=== PATIENT | male | born 1985 | race Caucasian/White ===

== ENCOUNTER 2017-04-09 17:58 | Emergency (ER) | payer BC, MEDICAID ==
[2017-04-09 18:11] VITALS: BP 173/112
--- NOTE | 2017-04-09 18:29 | EDM.PDOC ---
ED HPI GENERAL MEDICAL PROBLEM - General Chief Complaint: Respiratory Problem Stated Complaint: SOB/CHEST PAIN Time Seen by Provider: 04/09/17 18:05 Source of Information: Reports: Patient - History of Present Illness INITIAL COMMENTS - FREE TEXT/NARRATIVE: Patient is here today for evaluation of a cough and sinus symptoms that started . Patient states that his cough has worsened, though his chest hurts when he coughs. He has had some productive sputum. He does have rhinorrhea and congestion. He denies any ear problems. Denies any chest pain other than when he coughs. No GI symptoms, eating well and drinking fluids well. Patient does have known untreated hepatitis C as he cannot afford the medication. 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 PCP in [place] prescribes his Suboxone as well. Patient also is on Coumadin daily for factor V and history of PE. Bilateral Chest Pain Score (Numeric/FACES): 6 - Related Data Allergies Allergy/AdvReac Type Severity Reaction Status Date / Time morphine Allergy Hives Verified 04/09/17 18:08 Home Meds: Home Meds Albuterol [Ventolin HFA] 1 - 2 puff INH Q4H PRN #1 inhaler 04/09/17 [Rx] Buprenorphine HCl/Naloxone HCl [Buprenorphin-Naloxon 8-2 mg Sl] 1 tab PO DAILY 04/09/17 [History] Warfarin Sodium [Jantoven] 7.5 mg PO DAILY 04/09/17 [History] Past Medical History HEENT History: Reports: Impaired Vision Other HEENT History: Wears glasses Cardiovascular History: Reports: Blood Clots/VTE/DVT Respiratory History: Reports: Bronchitis, Recurrent, PE, Pneumonia, Recurrent Gastrointestinal History: Reports: Other (See Below) Other Gastrointestinal History: bleeding ulcer Neurological History: Reports: Migraines - Infectious Disease History Infectious Disease History: Reports: Hepatitis C - Past Surgical History HEENT Surgical History: Reports: Myringotomy w Tube(s), Tonsillectomy Social & Family History - Tobacco Use Smoking Status *Q: Current Every Day Smoker Years of Tobacco use: 10 Packs/Tins Daily: 0.5 - Caffeine Use Caffeine Use: Reports: Energy Drinks, Soda, Tea - Recreational Drug Use Recreational Drug Use: Yes Drug Use in Last 12 Months: Yes Recreational Drug Type: Reports: Cocaine, Heroin, Opium Other Recreational Drug Type: last used 7 months ago Recreational Drug Use Frequency: Not Used In Over 6 Months ED ROS GENERAL - Review of Systems Review Of Systems: See Below Constitutional: Reports: Chills, Malaise, Weakness, Fatigue. Denies: Fever HEENT: Reports: Rhinitis, Sinus Problem. Denies: Ear Discharge, Ear Pain, Eye Discharge, Throat Pain Respiratory: Reports: Shortness of Breath, Pleuritic Chest Pain, Cough, Sputum. Denies: Wheezing, Hemoptysis Cardiovascular: Reports: No Symptoms GI/Abdominal: Reports: No Symptoms Skin: Reports: No Symptoms ED EXAM, GENERAL - Physical Exam Exam: See Below Exam Limited By: No Limitations General Appearance: Alert, WD/WN, No Apparent Distress, Other (Patient is morbidly obese.) Ears: Normal External Exam, Normal Canal, Normal TMs Nose: Normal Inspection, Nasal Drainage Throat/Mouth: Normal Inspection, Normal Oropharynx Head: Atraumatic, Normocephalic Neck: Normal Inspection. No: Lymphadenopathy (L), Lymphadenopathy (R) Respiratory/Chest: No Respiratory Distress, Lungs Clear, Normal Breath Sounds. No: Respiratory Distress Cardiovascular: Regular Rate, Rhythm, No Murmur, No Rub GI/Abdominal: Normal Bowel Sounds, Soft, Non-Tender Neurological: Alert, Oriented Skin Exam: Warm, Dry, Intact EKG INTERPRETATION EKG Date: 04/09/17 Time: 18:13 Rhythm: NSR Rate (Beats/Min): 91 [place]: Normal P-Wave: Present QRS: Normal ST-T: Normal QT: Normal EKG Interpretation Comments: Reviewed with Dr Li Course - Vital Signs Last Recorded V/S: Last Vital Signs Temp 99.1 F 04/09/17 18:08 Pulse 106 H 04/09/17 18:08 Resp 11 L 04/09/17 18:08 BP 173/112 H 04/09/17 18:08 Pulse Ox 98 04/09/17 20:14 - Orders/Labs/Meds Orders: Active Orders 24 hr Category Date Time Status EKG 12 Lead [EKG Documentation Completion] [RC] STAT Care 04/09/17 20:18 Active RT Aerosol Therapy [RC] ASDIRECTED Care 04/09/17 20:00 Active Chest 2V [CR] Stat Exams 04/09/17 18:34 Taken Labs: Laboratory Tests 04/09/17 04/09/17 04/09/17 Range/Units 18:15 18:55 18:55 WBC 5.92 (4.23-9.07) K/mm3 RBC 4.47 L (4.63-6.08) M/mm3 Hgb 12.5 L (13.7-17.5) gm/L Hct 38.5 L (40.1-51.0) % MCV 86.1 (79.0-92.2) fl MCH 28.0 (25.7-32.2) pg MCHC 32.5 (32.2-35.5) g/dl RDW Std Deviation 40.9 (35.1-43.9) fL Plt Count 201 (163-337) K/mm3 MPV 10.0 (9.4-12.3) fl Neutrophils % (Manual) 70 H (40-60) % Band Neutrophils % 0 (0-10) % Lymphocytes % (Manual) 21 (20-40) % Atypical Lymphs % 0 % Monocytes % (Manual) 5 (2-10) % Eosinophils % (Manual) 4 (0.8-7.0) % Basophils % (Manual) 0 L (0.2-1.2) Platelet Estimate Adequate RBC Morph Comment Normal PT 18.8 H (8.0-13.0) SECONDS INR 1.67 D-Dimer, Quantitative < 0.19 L (0.19-0.59) mg/L Sodium (136-145) mEq/L Potassium (3.5-5.1) mEq/L Chloride (98-107) mEq/L Carbon Dioxide (21-32) mEq/L Anion Gap (5-15) BUN (7-18) mg/dL Creatinine (0.7-1.3) mg/dL Est Cr Clr Drug Dosing mL/min Estimated GFR (MDRD) (>60) mL/min BUN/Creatinine Ratio (14-18) Glucose (74-106) mg/dL Calcium (8.5-10.1) mg/dL Total Bilirubin (0.2-1.0) mg/dL AST (15-37) U/L ALT (16-63) U/L Alkaline Phosphatase (46-116) U/L C-Reactive Protein (<1.0) mg/dL Total Protein (6.4-8.2) g/dl Albumin (3.4-5.0) g/dl Globulin gm/dL Albumin/Globulin Ratio (1-2) 04/09/17 Range/Units 18:55 WBC (4.23-9.07) K/mm3 RBC (4.63-6.08) M/mm3 Hgb (13.7-17.5) gm/L Hct (40.1-51.0) % MCV (79.0-92.2) fl MCH (25.7-32.2) pg MCHC (32.2-35.5) g/dl RDW Std Deviation (35.1-43.9) fL Plt Count (163-337) K/mm3 MPV (9.4-12.3) fl Neutrophils % (Manual) (40-60) % Band Neutrophils % (0-10) % Lymphocytes % (Manual) (20-40) % Atypical Lymphs % % Monocytes % (Manual) (2-10) % Eosinophils % (Manual) (0.8-7.0) % Basophils % (Manual) (0.2-1.2) Platelet Estimate RBC Morph Comment PT (8.0-13.0) SECONDS INR D-Dimer, Quantitative (0.19-0.59) mg/L Sodium 143 (136-145) mEq/L Potassium 3.7 (3.5-5.1) mEq/L Chloride 106 (98-107) mEq/L Carbon Dioxide 28 (21-32) mEq/L Anion Gap 12.7 (5-15) BUN 13 (7-18) mg/dL Creatinine 0.7 (0.7-1.3) mg/dL Est Cr Clr Drug Dosing 175.97 mL/min Estimated GFR (MDRD) > 60 (>60) mL/min BUN/Creatinine Ratio 18.6 H (14-18) Glucose 123 H (74-106) mg/dL Calcium 8.2 L (8.5-10.1) mg/dL Total Bilirubin 0.3 (0.2-1.0) mg/dL AST 21 (15-37) U/L ALT 42 (16-63) U/L Alkaline Phosphatase 66 (46-116) U/L C-Reactive Protein 2.4 H* (<1.0) mg/dL Total Protein 6.8 (6.4-8.2) g/dl Albumin 3.0 L (3.4-5.0) g/dl Globulin 3.8 gm/dL Albumin/Globulin Ratio 0.8 L (1-2) Meds: Medications Discontinued Medications Generic Name Dose Route Start Last Admin Trade Name Bradq PRN Reason Stop Dose Admin Albuterol/Ipratropium 3 ml 04/09/17 19:59 04/09/17 20:13 Duoneb 3.0-0.5 Mg/3 Ml NEB 04/09/17 20:00 3 ml ONETIME ONE Administration - Re-Assessments/Exams Free Text/Narrative Re-Assessment/Exam: No infiltrates or effusions visualized on xray, though image quality limited by patient's body habitus. Influenza negative. WBC 5920, CRP is 2.4. Likely viral etiology. Discussed supportive care measures; rest and increase fluids. Albuterol inhaler given for as needed use. Patient not therapeutic on his Coumadin, INR 1.67. Will increase his dose by 10 % which gives a total weekly dose is 65 mg. Patient is to follow-up with his PCP next week or certainly return to ER if needed and verbalized understanding of this. 04/09/17 19:25 04/09/17 20:42 Departure - Departure Time of Disposition: 20:37 Disposition: Home, Self-Care 01 Condition: Good Clinical Impression: Viral URI with cough, Bronchitis, Anticoagulated on warfarin - Discharge Information Prescriptions: Albuterol [Ventolin HFA] 1 - 2 puff INH Q4H PRN #1 inhaler PRN Reason: Dyspnea Instructions: Upper Respiratory Infection, Adult, [id number] Referrals: Kingston Reyna DO [Primary Care Provider] - Forms: ED Department Discharge Additional Instructions: Rest, drink lots of fluids Albuterol inhaler as needed ever 4-6 hours Follow-up with your PCP next week or return to ER if worsening of symptoms or fever >101F Your INR was low (1.68). Increase your coumadin to 2 pills (10mg) 4x weekly and 1.5 pills (7.5mg) 3 times weekly. Have this rechecked next week with your PCP. - My Orders Last 24 Hours: My Active Orders 04/09/17 18:34 Chest 2V [CR] Stat 04/09/17 20:00 RT Aerosol Therapy [RC] ASDIRECTED 04/09/17 20:18 EKG 12 Lead [EKG Documentation Completion] [RC] STAT - Assessment/Plan Last 24 Hours: My Active Orders 04/09/17 18:34 Chest 2V [CR] Stat 04/09/17 20:00 RT Aerosol Therapy [RC] ASDIRECTED 04/09/17 20:18 EKG 12 Lead [EKG Documentation Completion] [RC] STAT
[2017-04-09] MEDS ORDERED: Albuterol/Ipratropium 3.0-0.5 MG/3 ML Neb Soln NEB ONE (19:59)
--- NOTE | 2017-04-11 07:39 | CR ---
Chest: Two views of the chest were obtained. Comparison: No prior chest x-ray. Limitations: Motion artifact is identified on the frontal view. Within limitations as noted above, heart size and mediastinum are within normal limits. Lungs appear to be clear. Bony structures are within normal limits for the patient's age. Impression: 1. Motion artifact on the frontal view. Within this limitation, nothing acute is appreciated on two-view chest x-ray. Diagnostic code #2
== END 2017-04-09 20:55 | disposition home or self-care (01) ==
LOC: JD.ED 17:58
DX: J06.9 Acute upper respiratory infection, unspecified (principal); J40 Bronchitis, not specified as acute or chronic; F17.210 Nicotine dependence, cigarettes, uncomplicated; Z88.5 Allergy status to narcotic agent; Z79.01 Long term (current) use of anticoagulants
CPT/HCPCS: 36415; 71020; 71020-26; 80053; 85025; 85379; 85610; 86140; 87804; 93005; 93010; 94640; 99284-25; 99285-25

== ENCOUNTER 2017-07-14 12:33 | Emergency (ER) | payer BC ==
[2017-07-14 12:40] VITALS: BP 164/96
[2017-07-14] MEDS ORDERED: Sodium Chloride 0.9% 10 ML Syringe FLUSH PRN (12:57)
--- NOTE | 2017-07-14 13:04 | EDM.PDOC ---
ED HPI GENERAL MEDICAL PROBLEM - General Chief Complaint: Chest Pain Stated Complaint: [facility] Time Seen by Provider: 07/14/17 12:42 Source of Information: Reports: Patient History Limitations: Reports: No Limitations - History of Present Illness INITIAL COMMENTS - FREE TEXT/NARRATIVE: 31-year-old male presents for evaluation treatment of chest pain and shortness of breath. Patient reports the chest pain began around 30 this morning. He states he was at work at the time. He was sitting at his desk. Reports that chest pain has been intermittent. He "has a "little bit "of chest pain right now. Reports associated symptoms of shortness of breath. No fevers, cough, nausea or vomiting. Patient presented to his primary care provider's office today for refill on his Suboxone. He informed his primary care provider of his chest pain shortness of breath. Ambulance was called. Primary care called ear prior to arrival. Instructed he is not to have any narcotics as he is on Suboxone. Patient also reports he is on her bony for hepatitis C. Patient is currently on Coumadin, for history T blood clots 4. Reports his last INR was 2.9. States he is normally 2.1-2.4. Onset: Today Duration: Hour(s): (11) Location: Reports: Chest Left Chest Pain Score (Numeric/FACES): 5 - Related Data Allergies Allergy/AdvReac Type Severity Reaction Status Date / Time morphine Allergy Hives Verified 07/14/17 12:40 Home Meds: Home Meds Warfarin Sodium [Jantoven] 7.5 mg PO DAILY 04/09/17 [History] Buprenorphine HCl/Naloxone HCl [Suboxone 4 mg-1 mg Sl Film] 4 mg SL BEDTIME 01/21 [History] Buprenorphine HCl/Naloxone HCl [Suboxone 4 mg-1 mg Sl Film] 8 mg SL BID [History] Ledipasvir/Sofosbuvir [Harvoni 90-400 mg Tablet] 1 each PO DAILY 07/14/17 [ History] Multivitamin [Multivitamins] 1 each PO DAILY 07/14/17 [History] Acetaminophen 975 mg PO ONCALL PRN 07/21/17 [History] Penicillin V Potassium 500 mg PO Q6HR #40 tab 07/21/17 [Rx] Penicillin V Potassium 500 mg PO Q6HR #40 tab 07/21/17 [Rx] Past Medical History HEENT History: Reports: Impaired Vision Other HEENT History: Wears glasses Cardiovascular History: Reports: Blood Clots/VTE/DVT Respiratory History: Reports: Bronchitis, Recurrent, PE, Pneumonia, Recurrent Gastrointestinal History: Reports: Other (See Below) Other Gastrointestinal History: bleeding ulcer Neurological History: Reports: Migraines - Infectious Disease History Infectious Disease History: Reports: Hepatitis C - Past Surgical History HEENT Surgical History: Reports: Myringotomy w Tube(s), Tonsillectomy Social & Family History - Tobacco Use Smoking Status *Q: Current Every Day Smoker Years of Tobacco use: 12 Packs/Tins Daily: 0.5 - Caffeine Use Caffeine Use: Reports: Energy Drinks, Soda, Tea - Recreational Drug Use Recreational Drug Use: Yes Drug Use in Last 12 Months: No Recreational Drug Type: Reports: Cocaine, Heroin, Opium Other Recreational Drug Type: last used 7 months ago Recreational Drug Use Frequency: Not Used In Over 6 Months ED ROS GENERAL - Review of Systems Review Of Systems: See Below Constitutional: Denies: Fever Respiratory: Reports: Shortness of Breath. Denies: Cough Cardiovascular: Reports: Chest Pain GI/Abdominal: Denies: Abdominal Pain, Nausea, Vomiting ED EXAM, GENERAL - Physical Exam Exam: See Below Exam Limited By: No Limitations General Appearance: Alert, WD/WN, No Apparent Distress, Obese Throat/Mouth: Normal Inspection, Normal Lips, Normal Voice, No Airway Compromise Respiratory/Chest: No Respiratory Distress, Lungs Clear, Normal Breath Sounds Cardiovascular: Normal Peripheral Pulses, Regular Rate, Rhythm, No Murmur GI/Abdominal: Soft, Non-Tender Neurological: Alert, Oriented, Normal Cognition Psychiatric: Normal Affect, Normal Mood Skin Exam: Warm, Dry, Normal Color EKG INTERPRETATION EKG Date: 07/14/17 Time: 12:40 Rhythm: NSR Rate (Beats/Min): 78 [place]: Normal P-Wave: Present QRS: Normal ST-T: Normal QT: Normal EKG Interpretation Comments: NSR at 78 bpm. Poor "R" wave progression. consider septal hypertrophy. Reviewed by myself and Dr. Salmeron Course - Vital Signs Last Recorded V/S: Last Vital Signs Temp 36.1 C 07/14/17 12:37 Pulse 76 07/14/17 12:37 Resp 14 07/14/17 12:37 BP 164/96 H 07/14/17 12:37 Pulse Ox 98 07/14/17 12:37 - Orders/Labs/Meds Labs: Laboratory Tests 07/14/17 07/14/17 07/14/17 Range/Units 13:30 13:30 13:30 WBC 7.25 (4.23-9.07) K/mm3 RBC 4.58 L (4.63-6.08) M/mm3 Hgb 12.5 L (13.7-17.5) gm/L Hct 38.8 L (40.1-51.0) % MCV 84.7 (79.0-92.2) fl MCH 27.3 (25.7-32.2) pg MCHC 32.2 (32.2-35.5) g/dl RDW Std Deviation 43.4 (35.1-43.9) fL Plt Count 251 (163-337) K/mm3 MPV 10.4 (9.4-12.3) fl Neutrophils % (Manual) 66 H (40-60) % Band Neutrophils % 0 (0-10) % Lymphocytes % (Manual) 30 (20-40) % Atypical Lymphs % 0 % Monocytes % (Manual) 3 (2-10) % Eosinophils % (Manual) 0 L (0.8-7.0) % Basophils % (Manual) 1 (0.2-1.2) Platelet Estimate Adequate RBC Morph Comment Normal PT 28.6 H (8.0-13.0) SECONDS INR 2.48 APTT 46 H (22-36) SECONDS D-Dimer, Quantitative < 0.19 L (0.19-0.59) mg/L Puncture Site ABG pH (7.35-7.45) ABG pCO2 (35.0-45.0) mmHg ABG pO2 (80.0-100.0) mmHg ABG HCO3 (22.0-26.0) meq/L ABG O2 Saturation (96.0-97.0) % ABG Base Excess (-2-2.0) FiO2 (21.00-100.00) % Sodium 139 (136-145) mEq/L Potassium 4.1 (3.5-5.1) mEq/L Chloride 102 (98-107) mEq/L Carbon Dioxide 31 (21-32) mEq/L Anion Gap 10.1 (5-15) BUN 16 (7-18) mg/dL Creatinine 0.7 (0.7-1.3) mg/dL Est Cr Clr Drug Dosing 170.90 mL/min Estimated GFR (MDRD) > 60 (>60) mL/min BUN/Creatinine Ratio 22.9 H (14-18) Glucose 105 (74-106) mg/dL Calcium 8.8 (8.5-10.1) mg/dL Total Bilirubin 0.4 (0.2-1.0) mg/dL AST 23 (15-37) U/L ALT 38 (16-63) U/L Alkaline Phosphatase 59 (46-116) U/L Troponin I < 0.017 (0.00-0.056) ng/mL Total Protein 7.0 (6.4-8.2) g/dl Albumin 3.2 L (3.4-5.0) g/dl Globulin 3.8 gm/dL Albumin/Globulin Ratio 0.8 L (1-2) 07/14/17 Range/Units 15:00 WBC (4.23-9.07) K/mm3 RBC (4.63-6.08) M/mm3 Hgb (13.7-17.5) gm/L Hct (40.1-51.0) % MCV (79.0-92.2) fl MCH (25.7-32.2) pg MCHC (32.2-35.5) g/dl RDW Std Deviation (35.1-43.9) fL Plt Count (163-337) K/mm3 MPV (9.4-12.3) fl Neutrophils % (Manual) (40-60) % Band Neutrophils % (0-10) % Lymphocytes % (Manual) (20-40) % Atypical Lymphs % % Monocytes % (Manual) (2-10) % Eosinophils % (Manual) (0.8-7.0) % Basophils % (Manual) (0.2-1.2) Platelet Estimate RBC Morph Comment PT (8.0-13.0) SECONDS INR APTT (22-36) SECONDS D-Dimer, Quantitative (0.19-0.59) mg/L Puncture Site Rt radial ABG pH 7.39 (7.35-7.45) ABG pCO2 47.3 H (35.0-45.0) mmHg ABG pO2 78.0 L (80.0-100.0) mmHg ABG HCO3 28.0 H (22.0-26.0) meq/L ABG O2 Saturation 96.5 (96.0-97.0) % ABG Base Excess 2.9 H (-2-2.0) FiO2 0.00 L (21.00-100.00) % Sodium (136-145) mEq/L Potassium (3.5-5.1) mEq/L Chloride (98-107) mEq/L Carbon Dioxide (21-32) mEq/L Anion Gap (5-15) BUN (7-18) mg/dL Creatinine (0.7-1.3) mg/dL Est Cr Clr Drug Dosing mL/min Estimated GFR (MDRD) (>60) mL/min BUN/Creatinine Ratio (14-18) Glucose (74-106) mg/dL Calcium (8.5-10.1) mg/dL Total Bilirubin (0.2-1.0) mg/dL AST (15-37) U/L ALT (16-63) U/L Alkaline Phosphatase (46-116) U/L Troponin I (0.00-0.056) ng/mL Total Protein (6.4-8.2) g/dl Albumin (3.4-5.0) g/dl Globulin gm/dL Albumin/Globulin Ratio (1-2) Meds: Medications Discontinued Medications Generic Name Dose Route Start Last Admin Trade Name Freq PRN Reason Stop Dose Admin Sodium Chloride 10 ml 07/14/17 12:57 07/14/17 13:05 Saline Flush FLUSH 10 ml ASDIRECTED PRN Administration Keep Vein Open - Radiology Interpretation Free Text/Narrative:: chest xray shows no acute intrathoracic process - Re-Assessments/Exams Free Text/Narrative Re-Assessment/Exam: 07/14/17 15:18 I reviewed the labs and EKG with the patient. Will discharge him home. Discharge instructions as documented. Departure - Departure Time of Disposition: 15:18 Disposition: Home, Self-Care 01 Condition: Fair Clinical Impression: Anticoagulated on warfarin, Atypical chest pain Instructions: Warfarin Coagulopathy, Nonspecific Chest Pain, [id number] Referrals: Kingston Reyna, [Primary Care Provider] - Forms: ED Department Discharge Additional Instructions: Follow-up with your primary care provider this week or early next week. I recommend you discuss obtaining a stress test with him. Continue with your current plan of care. Please return to the ER if your symptoms change or worsen.
--- NOTE | 2017-07-14 14:06 | CR ---
Chest: Portable view of the chest was obtained. Comparison: Prior chest x-ray of 04/09/17. Heart is prominent in size but accentuated from portable technique. Lungs are clear. Bony structures are grossly intact. Impression: 1. Nothing acute is appreciated. Diagnostic code #1
== END 2017-07-14 15:31 | disposition home or self-care (01) ==
LOC: JD.ED 12:33
DX: R07.89 Other chest pain (principal); Z79.01 Long term (current) use of anticoagulants; F17.210 Nicotine dependence, cigarettes, uncomplicated; Z79.899 Other long term (current) drug therapy; Z88.5 Allergy status to narcotic agent
CPT/HCPCS: 36415; 36600; 71045; 80053; 82803; 84484; 85025; 85379; 85610; 85730; 93005; 99285; J7050; 93010; 99284

== ENCOUNTER 2017-07-21 02:59 | Emergency (ER) | payer BC ==
[2017-07-21 03:07] VITALS: BP 209/94
[2017-07-21] MEDS ORDERED: Amoxicillin 500 MG Cap PO ONE (03:15)
--- NOTE | 2017-07-21 03:20 | EDM.PDOC ---
ED HPI GENERAL MEDICAL PROBLEM - General Chief Complaint: ENT Problem Stated Complaint: INFECTED TOOTH Time Seen by Provider: 07/21/17 03:11 Source of Information: Reports: Patient History Limitations: Reports: No Limitations - History of Present Illness INITIAL COMMENTS - FREE TEXT/NARRATIVE: The patient presents with a dental infection. He started noticing some pain to his left upper gum line yesterday and the pain has gotten worse. He has bad teeth and he is saving money to be evaluated and treated. He has a fever. Onset: Gradual Duration: Day(s): (2) Location: Reports: Face (Left upper jaw dental pain) Quality: Reports: Sharp Severity: Moderate Improves with: Reports: None Worsens with: Reports: None Associated Symptoms: Reports: Fever/Chills. Denies: Cough, Headaches, Nausea/ Vomiting, Shortness of Breath Left Upper Tooth/Teeth Pain Score (Numeric/FACES): 5 - Related Data Allergies Allergy/AdvReac Type Severity Reaction Status Date / Time morphine Allergy Hives Verified 07/14/17 12:40 Home Meds: Home Meds Warfarin Sodium [Jantoven] 7.5 mg PO DAILY 04/09/17 [History] Buprenorphine HCl/Naloxone HCl [Suboxone 4 mg-1 mg Sl Film] 4 mg SL BEDTIME 01/21 [History] Buprenorphine HCl/Naloxone HCl [Suboxone 4 mg-1 mg Sl Film] 8 mg SL BID [History] Ledipasvir/Sofosbuvir [Harvoni 90-400 mg Tablet] 1 each PO DAILY 07/14/17 [ History] Multivitamin [Multivitamins] 1 each PO DAILY 07/14/17 [History] Acetaminophen 975 mg PO ONCALL PRN 07/21/17 [History] Penicillin V Potassium 500 mg PO Q6HR #40 tab 07/21/17 [Rx] Past Medical History HEENT History: Reports: Impaired Vision Other HEENT History: Wears glasses Cardiovascular History: Reports: Blood Clots/VTE/DVT Respiratory History: Reports: Bronchitis, Recurrent, PE, Pneumonia, Recurrent Gastrointestinal History: Reports: Other (See Below) Other Gastrointestinal History: bleeding ulcer Neurological History: Reports: Migraines Psychiatric History: Reports: Addiction - Infectious Disease History Infectious Disease History: Reports: Hepatitis C - Past Surgical History HEENT Surgical History: Reports: Myringotomy w Tube(s), Tonsillectomy Social & Family History - Tobacco Use Smoking Status *Q: Current Every Day Smoker Years of Tobacco use: 14 Packs/Tins Daily: 0.3 - Caffeine Use Caffeine Use: Reports: Energy Drinks, Soda, Tea - Recreational Drug Use Recreational Drug Use: Yes Drug Use in Last 12 Months: No Recreational Drug Type: Reports: Cocaine, Heroin, Opium Other Recreational Drug Type: last used 7 months ago Recreational Drug Use Frequency: Not Used In Over 6 Months ED ROS ENT - Review of Systems Review Of Systems: See Below Constitutional: Reports: No Symptoms HEENT: Reports: Dental Pain Respiratory: Reports: No Symptoms Cardiovascular: Reports: No Symptoms Endocrine: Reports: No Symptoms GI/Abdominal: Reports: No Symptoms : Reports: No Symptoms Musculoskeletal: Reports: No Symptoms ED EXAM, ENT - Physical Exam Exam: See Below Exam Limited By: No Limitations General Appearance: Alert, No Apparent Distress Ears: Normal External Exam Nose: Normal Inspection Mouth/Throat: Other (Cavities to teeth in the left upper jaw with erythema and edema of the gums) Head: Atraumatic, Normocephalic Neck: Normal Inspection Respiratory/Chest: No Respiratory Distress Course - Vital Signs Last Recorded V/S: Last Vital Signs Temp 100.3 F 07/21/17 03:05 Pulse 97 07/21/17 03:05 Resp 20 07/21/17 03:05 BP 209/94 H 07/21/17 03:05 Pulse Ox 100 07/21/17 03:05 - Orders/Labs/Meds Orders: Active Orders 24 hr Category Date Time Status Amoxicillin [Amoxil] Med 07/21/17 03:15 Once 1,000 mg PO ONETIME ONE - Re-Assessments/Exams Free Text/Narrative Re-Assessment/Exam: 07/21/17 03:18 I ordered some amoxicillin. I will get him a prescription for some pen VK. Departure - Departure Time of Disposition: 03:20 Disposition: Home, Self-Care 01 Condition: Good Clinical Impression: Dental caries, Dental abscess - Discharge Information Prescriptions: Penicillin V Potassium 500 mg PO Q6HR #40 tab Referrals: Kingston Reyna DO [Primary Care Provider] - Additional Instructions: Take the penicillin VK 4 times per day for 10 days. Follow up with a dentist when you can. Please return if you are worse. - My Orders Last 24 Hours: My Active Orders 07/21/17 03:15 Amoxicillin [Amoxil] 1,000 mg PO ONETIME ONE - Assessment/Plan Last 24 Hours: My Active Orders 07/21/17 03:15 Amoxicillin [Amoxil] 1,000 mg PO ONETIME ONE
== END 2017-07-21 03:30 | disposition home or self-care (01) ==
LOC: JD.ED 02:59
DX: K04.7 Periapical abscess without sinus (principal); K02.9 Dental caries, unspecified; F17.210 Nicotine dependence, cigarettes, uncomplicated; Z88.5 Allergy status to narcotic agent; Z79.899 Other long term (current) drug therapy; Z79.01 Long term (current) use of anticoagulants
CPT/HCPCS: 99283; A9270

== ENCOUNTER 2017-09-17 13:42 | Emergency (ER) | payer BC ==
[2017-09-17 13:53] VITALS: BP 156/98
[2017-09-17] MEDS ORDERED: ceFAZolin 2 GM in Premix Bag 1 BAG IV ONE (14:36)
[2017-09-17] MEDS ORDERED: Sodium Chloride 0.9% 10 ML Syringe FLUSH PRN (14:36)
[2017-09-17] MEDS ORDERED: Sodium Chloride 0.9% 1,000 ML IV SCH (14:45)
--- NOTE | 2017-09-17 14:45 | EDM.PDOC ---
ED HPI GENERAL MEDICAL PROBLEM - General Chief Complaint: Lower Extremity Injury/Pain Stated Complaint: RIGHT LEG PAIN Time Seen by Provider: 09/17/17 14:20 Source of Information: Reports: Patient History Limitations: Reports: No Limitations - History of Present Illness INITIAL COMMENTS - FREE TEXT/NARRATIVE: Patient is a 31-year-old male with a history of DVT and PE on warfarin who presents to the ED with concerns of cellulitis and/or blood clot to the right lower extremity. States about 3 weeks ago developed pain to the right leg with some mild erythema. States over the past 1.5 weeks the pain has worsened with increased redness and warmth noted. 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 He states last INR which was approximately one month ago was 2.3 which is therapeutic. He's had no fever, recent trauma, shortness of breath, or chest pain with onset of discomfort. No sensory/motor deficits noted. He offers no additional complaints at this time. Right Lower Leg Pain Score (Numeric/FACES): 5 - Related Data Allergies Allergy/AdvReac Type Severity Reaction Status Date / Time morphine Allergy Hives Verified 09/17/17 13:47 Home Meds: Home Meds Warfarin Sodium [Jantoven] 7.5 mg PO TUWETH 04/09/17 [History] Buprenorphine HCl/Naloxone HCl [Suboxone 4 mg-1 mg Sl Film] 4 mg SL BEDTIME 01/21 [History] Buprenorphine HCl/Naloxone HCl [Suboxone 4 mg-1 mg Sl Film] 8 mg SL BID [History] Multivitamin [Multivitamins] 1 each PO DAILY 07/14/17 [History] Acetaminophen 975 mg PO ONCALL PRN 07/21/17 [History] Cephalexin [Keflex] 500 mg PO QID #40 capsule 09/17/17 [Rx] Warfarin [Coumadin] 10 mg PO SUMOFRSA 09/17/17 [History] Past Medical History HEENT History: Reports: Impaired Vision Other HEENT History: Wears glasses Cardiovascular History: Reports: Blood Clots/VTE/DVT Respiratory History: Reports: Bronchitis, Recurrent, PE, Pneumonia, Recurrent Gastrointestinal History: Reports: Other (See Below) Other Gastrointestinal History: bleeding ulcer Neurological History: Reports: Migraines Psychiatric History: Reports: Addiction - Infectious Disease History Infectious Disease History: Reports: Hepatitis C - Past Surgical History HEENT Surgical History: Reports: Myringotomy w Tube(s), Tonsillectomy Social & Family History - Tobacco Use Smoking Status *Q: Current Every Day Smoker Years of Tobacco use: 15 Packs/Tins Daily: 0.2 - Caffeine Use Caffeine Use: Reports: Energy Drinks, Soda, Tea - Recreational Drug Use Recreational Drug Use: No Drug Use in Last 12 Months: No Recreational Drug Type: Reports: Cocaine, Heroin, Opium Other Recreational Drug Type: last used 7 months ago Recreational Drug Use Frequency: Not Used In Over 6 Months Review of Systems - Review of Systems Review Of Systems: ROS reveals no pertinent complaints other than HPI. ED EXAM, GENERAL - Physical Exam Exam: See Below Exam Limited By: No Limitations General Appearance: Alert, WD/WN, No Apparent Distress, Obese Ears: Hearing Grossly Normal Nose: Normal Inspection Throat/Mouth: Normal Voice, No Airway Compromise Neck: Normal Inspection, Supple Respiratory/Chest: No Respiratory Distress, Lungs Clear, Normal Breath Sounds, No Accessory Muscle Use, Chest Non-Tender Cardiovascular: Normal Peripheral Pulses, Regular Rate, Rhythm, No Murmur GI/Abdominal: Normal Bowel Sounds, Soft, Non-Tender, No Organomegaly, No Distention Extremities: Other (Patient is very obese. On examination of the right lower extremity there is a small scrape with a fairly large erythematous patch to the posterior calf with pain on palpation, increased warmth noted. No drainage. No sensory/motor deficits distally. There is a area of firmness noted to the posterior calf with tenderness noted. He states this is where the previous DVT was.) Neurological: Alert, Oriented, CN II-XII Intact, Normal Cognition, No Motor/ Sensory Deficits Psychiatric: Normal Affect, Normal Mood Skin Exam: Warm, Dry, Intact Course - Vital Signs Last Recorded V/S: Last Vital Signs Temp 98.4 F 09/17/17 13:47 Pulse 101 H 09/17/17 13:47 Resp 19 09/17/17 13:47 BP 156/98 H 09/17/17 13:47 Pulse Ox 98 09/17/17 13:47 - Orders/Labs/Meds Labs: Laboratory Tests 09/17/17 09/17/17 09/17/17 Range/Units 16:08 16:08 16:08 WBC 9.84 H (4.23-9.07) K/mm3 RBC 4.72 (4.63-6.08) M/mm3 Hgb 12.5 L (13.7-17.5) gm/L Hct 40.0 L (40.1-51.0) % MCV 84.7 (79.0-92.2) fl MCH 26.5 (25.7-32.2) pg MCHC 31.3 L (32.2-35.5) g/dl RDW Std Deviation 43.5 (35.1-43.9) fL Plt Count 279 (163-337) K/mm3 MPV 10.2 (9.4-12.3) fl Neutrophils % (Manual) 79 H (40-60) % Band Neutrophils % 0 (0-10) % Lymphocytes % (Manual) 11 L (20-40) % Atypical Lymphs % 0 % Monocytes % (Manual) 7 (2-10) % Eosinophils % (Manual) 2 (0.8-7.0) % Basophils % (Manual) 1 (0.2-1.2) Platelet Estimate Adequate Plt Morphology Comment Normal Hypochromasia 1+ slight RBC Morph Comment Not Reportable PT 44.9 H (9.5-12.1) SECONDS INR 4.24 APTT 54 H (24-31) SECONDS D-Dimer, Quantitative < 0.19 L (0.19-0.50) mg/L Sodium 143 (136-145) mEq/L Potassium 4.2 (3.5-5.1) mEq/L Chloride 105 (98-107) mEq/L Carbon Dioxide 29 (21-32) mEq/L Anion Gap 13.2 (5-15) BUN 13 (7-18) mg/dL Creatinine 0.7 (0.7-1.3) mg/dL Est Cr Clr Drug Dosing 170.90 mL/min Estimated GFR (MDRD) > 60 (>60) mL/min BUN/Creatinine Ratio 18.6 H (14-18) Glucose 101 (74-106) mg/dL Calcium 8.8 (8.5-10.1) mg/dL Total Bilirubin 0.3 (0.2-1.0) mg/dL AST 16 (15-37) U/L ALT 30 (16-63) U/L Alkaline Phosphatase 60 (46-116) U/L C-Reactive Protein 3.1 H* (<1.0) mg/dL Total Protein 7.7 (6.4-8.2) g/dl Albumin 3.3 L (3.4-5.0) g/dl Globulin 4.4 gm/dL Albumin/Globulin Ratio 0.8 L (1-2) Meds: Medications Discontinued Medications Generic Name Dose Route Start Last Admin Trade Name Freq PRN Reason Stop Dose Admin Cefazolin Sodium/Dextrose 2 gm 50 mls @ 100 mls/hr 09/17/17 14:36 09/17/17 15 :14 / Premix IV 09/17/17 15:05 100 mls/hr ONETIME ONE Administration Sodium Chloride 1,000 mls @ 125 mls/hr 09/17/17 14:45 09/17/17 15:15 Normal Saline IV 125 mls/hr ASDIRECTED GURPREET Administration Sodium Chloride 10 ml 09/17/17 14:36 09/17/17 15:14 Saline Flush FLUSH 10 ml ASDIRECTED PRN Administration Keep Vein Open - Re-Assessments/Exams Free Text/Narrative Re-Assessment/Exam: Peripheral IV started with Ancef 2 g IV. Patient has cellulitis of the right lower extremity with concerns for DVT. Initial labs and studies will include CBC, chem 14, CRP, d-dimer, PTT, and PTT/ INR. VL duplex of the right lower extremity obtained. There is a small scratch along the superior border of the area of increased erythema suggestive patient may have scratched it introducing bacteria. There is no drainage present. He has no history of MRSA. 09/17/17 16:39 Ultrasound right lower extremity impression: No evidence of deep venous thrombosis seen within the right lower extremity or the left common femoral vein. As mentioned above, the posterior tibial and peroneal veins were not visualized. Labs are pending. Labs reviewed: White blood cell count 9.84, hemoglobin 12.5, platelet count 279 , with no left shift. INR is supratherapeutic at 4.24. D-dimer less than 0.19. Chemistry panel is essentially normal. CRP mildly elevated at 3.1. Patient does not have a blood clot. INR supratherapeutic. Patient does have cellulitis. Will discharge patient home on Keflex. Discharge instructions as documented. Departure - Departure Time of Disposition: 16:48 Disposition: Home, Self-Care 01 Condition: Good Clinical Impression: Supratherapeutic INR Cellulitis Qualifiers: Site of cellulitis: extremity Site of cellulitis of extremity: lower extremity Laterality: right Qualified Code(s): L03.115 - Cellulitis of right lower limb - Discharge Information Prescriptions: Cephalexin [Keflex] 500 mg PO QID #40 capsule Instructions: Cellulitis, Adult Referrals: PCP,Not In Area [Primary Care Provider] - Forms: ED Department Discharge Additional Instructions: INR was supratherapeutic. Will have you hold her dose tomorrow and decreased the total warfarin dosage for one week by 10%. Thus will have you take 7.5 mg on Tuesday, Tuesday, Tuesday, , and Tuesday. Take 10 mg on Tuesday and Tuesday. In addition will have you take Keflex 4 times a day for 10 days. Elevate the affected extremity unable to reduce any swelling and pain. Apply warm compresses to affected area 4 times daily, 30 minutes in duration. Do not scratch her leg since this most likely precipitated the infection. Follow-up with your primary care provider the middle part of next week to recheck her INR and also evaluated for improvements to cellulitis area. Continue taking all your other home medications as prescribed. Return to the ED if you develop any new or worsening symptoms.
--- NOTE | 2017-09-17 16:11 | US ---
Right lower extremity deep venous ultrasound: Duplex and color flow imaging was obtained of the right common femoral, superficial femoral, popliteal, posterior tibial, peroneal and proximal greater saphenous vein. Left common femoral vein was also evaluated. Technologist's note: Difficult exam due to patient body habitus, unable to definitely visualize posterior tibial and peroneal veins. Findings: As noted above, the posterior tibial and peroneal veins were not able to be visualized. Other veins show normal phasic flow, augmentation and compression. Impression: 1. No evidence of deep venous thrombosis seen within right lower extremity or the left common femoral vein. 2. As mentioned above, the posterior tibial and peroneal veins were not visualized. Diagnostic code #2
== END 2017-09-17 17:20 | disposition home or self-care (01) ==
LOC: JD.ED 13:42
DX: L03.115 Cellulitis of right lower limb (principal); R79.1 Abnormal coagulation profile; Z86.718 Personal history of other venous thrombosis and embolism; Z79.01 Long term (current) use of anticoagulants; Z88.5 Allergy status to narcotic agent
CPT/HCPCS: 36415; 80053; 85025; 85379; 85610; 85730; 86140; 93971; 96361; 96365; 99284; J0690; J7040; J7050

== ENCOUNTER 2017-10-12 00:50 | Emergency (ER) | payer BC ==
[2017-10-12 01:08] VITALS: BP 184/115
[2017-10-12] MEDS ORDERED: Ondansetron 4 MG/2 ML SDV IVPUSH ONE (01:31)
--- NOTE | 2017-10-12 01:35 | EDM.PDOC ---
ED HPI GENERAL MEDICAL PROBLEM - General Chief Complaint: Abdominal Pain Stated Complaint: ABDOMINAL PAIN Time Seen by Provider: 10/12/17 01:18 Source of Information: Reports: Patient History Limitations: Reports: No Limitations - History of Present Illness INITIAL COMMENTS - FREE TEXT/NARRATIVE: The patient states that he developed lower abdominal pain, a crampy sensation, Tuesday night, 10/07/2017, or Tuesday morning, 10/08/2017. He states that he felt well on Tuesday and Tuesday, 10/09/2017 and 10/10/2017, but that his symptoms returned again today. He has not identified any modifiers. The pain does not radiate. He has had nausea, but no emesis. No recent constipation or diarrhea. No recent urinary symptoms. No recent fever. No prior similar symptoms. The patient states that he has not tried any home remedies or [id number] medications to treat his symptoms. The patient's last oral solid food was at 22:30 tonight. The patient's PCP is Dr. Reyna. Lower Abdominal Pain Score (Numeric/FACES): 7 - Related Data Allergies Allergy/AdvReac Type Severity Reaction Status Date / Time morphine Allergy Hives Verified 10/12/17 01:08 Home Meds: Home Meds Warfarin Sodium [Jantoven] 7.5 mg PO WETH 04/09/17 [History] Buprenorphine HCl/Naloxone HCl [Suboxone 4 mg-1 mg Sl Film] 4 mg SL BEDTIME 01/21 [History] Buprenorphine HCl/Naloxone HCl [Suboxone 4 mg-1 mg Sl Film] 8 mg SL BID [History] Multivitamin [Multivitamins] 1 each PO DAILY 07/14/17 [History] Acetaminophen 975 mg PO ONCALL PRN 07/21/17 [History] Warfarin [Coumadin] 10 mg PO SUMOFRSA 09/17/17 [History] Ondansetron [Zofran ODT] 1 tab PO Q8H PRN #10 tab.dis 10/12/17 [Rx] Past Medical History HEENT History: Reports: Impaired Vision Other HEENT History: Wears glasses Cardiovascular History: Reports: Blood Clots/VTE/DVT, Other (See Below) Respiratory History: Reports: PE Gastrointestinal History: Reports: PUD Musculoskeletal History: Reports: Fracture (right elbow, rib, hand) Neurological History: Reports: Migraines Psychiatric History: Reports: Addiction (Cocaine, heroin, opioids, marijuana, alcohol) Endocrine/Metabolic History: Reports: Obesity/BMI 30+ Hematologic History: Reports: Anticoagulation Therapy (Factor V Leiden) - Infectious Disease History Infectious Disease History: Reports: Hepatitis C - Past Surgical History HEENT Surgical History: Reports: Myringotomy w Tube(s), Tonsillectomy Social & Family History - Family History Cardiac: Reports: [place] - Tobacco Use Smoking Status *Q: Current Every Day Smoker Years of Tobacco use: 16 Packs/Tins Daily: 2 - Caffeine Use Caffeine Use: Reports: Tea - Alcohol Use Alcohol Use History: Yes Date/Time of Last Drink Comment: Quit 2011 - Recreational Drug Use Recreational Drug Use: Yes Drug Use in Last 12 Months: No Recreational Drug Type: Reports: Cocaine (last December 2015), Heroin (last 2015), Marijuana/Hashish (last 2009), Other (see below) (Opioids - last Feb 2016) - Living Situation & Occupation Living situation: Reports: Single, Other (with a friend) Occupation: Employed ([employer]) ED ROS GENERAL - Review of Systems Review Of Systems: ROS reveals no pertinent complaints other than HPI. ED EXAM, GI/ABD - Physical Exam Exam: See Below Exam Limited By: No Limitations General Appearance: Alert, WD/WN, No Apparent Distress Eyes: Bilateral: Normal Appearance, EOMI Ears: Normal External Exam, Hearing Grossly Normal Nose: Normal Inspection, No Blood Throat/Mouth: Normal Inspection, Normal Lips, Normal Voice, No Airway Compromise Head: Atraumatic, Normocephalic Neck: Normal Inspection, Full Range of Motion Respiratory/Chest: No Respiratory Distress, Lungs Clear, Normal Breath Sounds, No Accessory Muscle Use Cardiovascular: Normal Peripheral Pulses, Regular Rate, Rhythm, No Gallop, No JVD, No Murmur, No Rub GI/Abdominal Exam: Normal Bowel Sounds, Soft, Non-Tender (Including to lower abdomen), No Organomegaly, No Distention, No Abnormal Bruit, No Mass, Other ( Obese) (Male) Exam: Deferred Rectal (Males) Exam: Deferred Back Exam: Normal Inspection, Full Range of Motion. No: CVA Tenderness (L), CVA Tenderness (R) Extremities: Normal Inspection, Normal Range of Motion, No Pedal Edema, Normal Capillary Refill Neurological: Alert, Oriented, Normal Cognition, No Motor/Sensory Deficits Psychiatric: Normal Affect Skin Exam: Warm, Dry, Intact, Normal Color, No Rash Course - Vital Signs Last Recorded V/S: Last Vital Signs Temp 37.1 C 10/12/17 01:05 Pulse 92 10/12/17 01:05 Resp 18 10/12/17 01:05 BP 184/115 H 10/12/17 01:05 Pulse Ox 94 L 10/12/17 01:05 - Orders/Labs/Meds Orders: Active Orders 24 hr Category Date Time Status Abdomen Pelvis w Cont [CT] Stat Exams 10/12/17 01:31 Taken UA W/MICROSCOPIC [URIN] Stat Lab 10/12/17 03:24 Ordered Labs: Laboratory Tests 10/12/17 10/12/17 10/12/17 Range/Units 01:56 01:56 03:24 WBC 8.59 (4.23-9.07) K/mm3 RBC 5.06 (4.63-6.08) M/mm3 Hgb 13.4 L (13.7-17.5) gm/L Hct 42.2 (40.1-51.0) % MCV 83.4 (79.0-92.2) fl MCH 26.5 (25.7-32.2) pg MCHC 31.8 L (32.2-35.5) g/dl RDW Std Deviation 43.8 (35.1-43.9) fL Plt Count 264 (163-337) K/mm3 MPV 10.8 (9.4-12.3) fl Neutrophils % (Manual) 69 H (40-60) % Band Neutrophils % 0 (0-10) % Lymphocytes % (Manual) 24 (20-40) % Atypical Lymphs % 0 % Monocytes % (Manual) 2 (2-10) % Eosinophils % (Manual) 5 (0.8-7.0) % Basophils % (Manual) 0 L (0.2-1.2) Platelet Estimate Adequate RBC Morph Comment Normal Sodium 141 (136-145) mEq/L Potassium 3.6 (3.5-5.1) mEq/L Chloride 105 (98-107) mEq/L Carbon Dioxide 28 (21-32) mEq/L Anion Gap 11.6 (5-15) BUN 14 (7-18) mg/dL Creatinine 0.7 (0.7-1.3) mg/dL Est Cr Clr Drug Dosing 170.90 mL/min Estimated GFR (MDRD) > 60 (>60) mL/min BUN/Creatinine Ratio 20.0 H (14-18) Glucose 108 H (74-106) mg/dL Calcium 8.9 (8.5-10.1) mg/dL Total Bilirubin 0.7 (0.2-1.0) mg/dL AST 18 (15-37) U/L ALT 38 (16-63) U/L Alkaline Phosphatase 51 (46-116) U/L Total Protein 7.8 (6.4-8.2) g/dl Albumin 3.6 (3.4-5.0) g/dl Globulin 4.2 gm/dL Albumin/Globulin Ratio 0.9 L (1-2) Lipase 65 L (73-393) U/L Urine Color Yellow (Yellow) Urine Appearance Clear (Clear) Urine pH 6.0 (5.0-8.0) Ur Specific [place] 1.020 (1.005-1.030) Urine Protein Negative (Negative) Urine Glucose (UA) Negative (Negative) Urine Ketones 1+ H (Negative) Urine Occult Blood Negative (Negative) Urine Nitrite Negative (Negative) Urine Bilirubin 1+ H (Negative) Urine Urobilinogen 1.0 (0.2-1.0) Ur Leukocyte Esterase Negative (Negative) Urine RBC Not seen (0-5) /hpf Urine WBC Not seen (0-5) /hpf Ur Epithelial Cells Not seen (0-5) /hpf Urine Bacteria Occasional (FEW) /hpf Urine Mucus Few (FEW) /hpf Meds: Medications Discontinued Medications Generic Name Dose Route Start Last Admin Trade Name Freq PRN Reason Stop Dose Admin Diatrizoate Meglum/Diatrizoate Sod 90 ml 10/12/17 03:10 10/12/17 03:12 Gastrografin 37% PO 10/12/17 03:11 90 ml ONETIME ONE Administration Sodium Chloride 1,000 mls @ 150 mls/hr 10/12/17 01:45 10/12/17 02:00 Normal Saline IV 150 mls/hr ASDIRECTED GURPREET Administration Iopamidol 125 ml 10/12/17 03:10 10/12/17 03:12 Isovue-300 (61%) IVPUSH 10/12/17 03:11 125 ml ONETIME ONE Administration Ondansetron HCl 4 mg 10/12/17 01:31 10/12/17 02:00 Zofran IVPUSH 10/12/17 01:32 4 mg ONETIME ONE Administration - Re-Assessments/Exams Free Text/Narrative Re-Assessment/Exam: 10/12/17 01:34 The patient's abdominal exam is concerning in that there are rare bowel sounds, although he has minimal tenderness to his lower abdomen, where his pain is felt. In addition to blood work and a urinalysis, I have ordered a CT scan of the abdomen and pelvis with oral and IV contrast. I have ordered IV fluid and Zofran, but, given the patient's history of opioid abuse, in recovery, no pain medication at this time. 10/12/17 04:03 CT of the abdomen and pelvis with oral and IV contrast is read by [facility] as: Focal arthritis [sic] in the right lower quadrant involving the terminal ileum without evidence for abscess or bowel obstruction. Crohn's disease should be considered Normal appendix right lower quadrant 10/12/17 04:56 Test results discussed with the patient. As above, the CT scan indicates that the patient has inflammation at the terminal ileum, concerning for Crohn disease , but not diagnostic. Other potential causes of this could be viral. Treatment is based on diagnosis. For today's purposes, I will discharge the patient home with an e-prescription for Zofran, and refer the patient to Dr. Tay, to arrange for an outpatient colonoscopy. Departure - Departure Time of Disposition: 04:57 Disposition: Home, Self-Care 01 Condition: Fair Clinical Impression: Inflammation of small intestine - Discharge Information Prescriptions: Ondansetron [Zofran ODT] 1 tab PO Q8H PRN #10 tab.dis PRN Reason: Nausea/Vomiting Referrals: PCP,Not In Area [Primary Care Provider] - Luke Tay MD [Physician] - Forms: ED Department Discharge Additional Instructions: You were seen in the emergency room for lower abdominal pain and nausea. Workup in the ER included blood work, a urinalysis, and a CT scan of your abdomen and pelvis. Your blood work and urinalysis were normal, however, the CT scan of your abdomen and pelvis found inflammation involving the terminal ileum - the last part of your small intestine. There is a possibility that this could be due to Crohn disease. Further evaluation is needed. A prescription for the anti-nausea medicine Zofran has been sent to the [facility] pharmacy, located on [facility]. Dissolve 1 tablet on your tongue up to every 8 hours, as needed for nausea/vomiting. Follow-up with the Surgeon Dr. Tay at the next available appointment, to arrange for an outpatient colonoscopy. If any other problems, please do not hesitate to return to the ER. - My Orders Last 24 Hours: My Active Orders 10/12/17 01:31 Abdomen Pelvis w Cont [CT] Stat 10/12/17 03:24 UA W/MICROSCOPIC [URIN] Stat - Assessment/Plan Last 24 Hours: My Active Orders 10/12/17 01:31 Abdomen Pelvis w Cont [CT] Stat 10/12/17 03:24 UA W/MICROSCOPIC [URIN] Stat
[2017-10-12] MEDS ORDERED: Sodium Chloride 0.9% 1,000 ML IV SCH (01:45)
[2017-10-12] MEDS ORDERED: Diatrizoate Meglumine/Diatrizoate Sodium 37% 120 ML Bottle PO ONE (03:10)
[2017-10-12] MEDS ORDERED: Iopamidol 612 MG/ML 150 ML Bottle IVPUSH ONE (03:10)
--- NOTE | 2017-10-13 10:21 | CT ---
CT abdomen and pelvis Technique: Multiple axial sections were obtained from above the dome of the diaphragm inferiorly through the pubic symphysis. Intravenous and oral contrast was utilized. Delayed images were also obtained through the pelvis. Comparison: No prior abdominal imaging. Findings: Visualized lung bases show nothing acute. Liver and spleen show no focal parenchymal abnormality. Adrenal glands show no nodule. Pancreas is normal. Gallbladder is collapsed but shows no calcified gallstones. Kidneys show symmetric contrast enhancement without hydronephrosis or mass. Aorta shows no aneurysmal dilatation. No retroperitoneal adenopathy is seen. No pelvic mass or adenopathy is seen. Delayed images show contrast throughout the ureters and bladder. Lack of contrast is seen within the distal ileal loops but bowel wall thickening is felt to be present within the distal ileal loops. More proximal small bowel shows no abnormality. Appendix is felt to be visualized and appears within normal limits. Bone window settings were reviewed which appear within normal limits for the patient's age. Impression: 1. Mild wall thickening suggested within the distal ileum compatible with enteritis. Given the location of this small bowel wall thickening, Crohn's disease needs to be strongly considered. 2. Nothing acute is otherwise seen on CT study of the abdomen and pelvis. Diagnostic code #3 I agree with preliminary report from [facility], finalized at 10/12/17, 4:31 AM Central Time
== END 2017-10-12 05:15 | disposition home or self-care (01) ==
LOC: JD.ED 00:50
DX: K52.9 Noninfective gastroenteritis and colitis, unspecified (principal); F17.210 Nicotine dependence, cigarettes, uncomplicated; Z79.01 Long term (current) use of anticoagulants; Z79.899 Other long term (current) drug therapy; Z88.5 Allergy status to narcotic agent
CPT/HCPCS: 36415; 74177; 80053; 81001; 83690; 85025; 96361; 96374; 99284; J2405; J7040; Q9963; Q9967

== ENCOUNTER 2017-11-13 18:35 | Emergency (ER) | payer BC ==
[2017-11-13 18:50] VITALS: BP 146/66
[2017-11-13] MEDS ORDERED: Ketorolac 60 MG/2 ML SDV IM ONE (19:05)
[2017-11-13] MEDS ORDERED: Amoxicillin 500 MG Cap PO ONE (19:05)
[2017-11-13] MEDS ORDERED: Acetaminophen 325 MG Tab PO ONE (19:05)
--- NOTE | 2017-11-13 19:11 | EDM.PDOC ---
ED HPI GENERAL MEDICAL PROBLEM - General Chief Complaint: ENT Problem Stated Complaint: tooth pain Time Seen by Provider: 11/13/17 18:48 Source of Information: Reports: Patient, RN Notes Reviewed - History of Present Illness INITIAL COMMENTS - FREE TEXT/NARRATIVE: 32 year old male with dental pain R 2nd lower premolar. tooth has been bad for awhile, started hurting badly past 2 days, worse today. Treatments HAND INSPECTOR: Reports: Other (see below) Other Treatments HAND INSPECTOR: motrin Right Lower Tooth/Teeth Pain Score (Numeric/FACES): 8 - Related Data Allergies Allergy/AdvReac Type Severity Reaction Status Date / Time morphine Allergy Hives Verified 10/12/17 01:08 Home Meds: Home Meds Warfarin Sodium [Jantoven] 7.5 mg PO TUWETH 04/09/17 [History] Buprenorphine HCl/Naloxone HCl [Suboxone 4 mg-1 mg Sl Film] 4 mg SL BEDTIME 01/21 [History] Buprenorphine HCl/Naloxone HCl [Suboxone 4 mg-1 mg Sl Film] 8 mg SL BID [History] Multivitamin [Multivitamins] 1 each PO DAILY 07/14/17 [History] Acetaminophen 975 mg PO ONCALL PRN 07/21/17 [History] Warfarin [Coumadin] 10 mg PO SUMOFRSA 09/17/17 [History] Naproxen [Naprosyn] 500 mg PO Q12HR #14 tab 11/13/17 [Rx] Past Medical History HEENT History: Reports: Impaired Vision Other HEENT History: Wears glasses Cardiovascular History: Reports: Blood Clots/VTE/DVT, Other (See Below) Other Cardiovascular History: factor V, PE Respiratory History: Reports: PE Gastrointestinal History: Reports: PUD Other Gastrointestinal History: bleeding ulcer Musculoskeletal History: Reports: Fracture Other Musculoskeletal History: right elbow fracture, rib fracture, hand fracture Neurological History: Reports: Migraines Psychiatric History: Reports: Addiction Endocrine/Metabolic History: Reports: Obesity/BMI 30+ Hematologic History: Reports: Anticoagulation Therapy Other Hematologic History: Factor V - Infectious Disease History Infectious Disease History: Reports: Hepatitis C - Past Surgical History HEENT Surgical History: Reports: Myringotomy w Tube(s), Tonsillectomy Social & Family History - Family History Cardiac: Reports: [place] - Tobacco Use Smoking Status *Q: Current Every Day Smoker Years of Tobacco use: 16 Packs/Tins Daily: 0.5 - Caffeine Use Caffeine Use: Reports: Energy Drinks, Tea - Recreational Drug Use Recreational Drug Use: No - Living Situation & Occupation Living situation: Reports: Single, Other (with a friend) Occupation: Employed ([employer]) ED ROS ENT - Review of Systems Review Of Systems: See Below Constitutional: Denies: Fever, Chills HEENT: Reports: Dental Pain Respiratory: Reports: No Symptoms Cardiovascular: Denies: Chest Pain GI/Abdominal: Denies: Nausea, Vomiting Skin: Reports: No Symptoms Neurological: Reports: No Symptoms ED EXAM, ENT - Physical Exam Exam: See Below General Appearance: Alert, Mild Distress Mouth/Throat: Dental Pain (R lower 2nd premolar, no swelling or drainage) Head: No: Facial Swelling Neck: Supple Respiratory/Chest: No Respiratory Distress Skin: Warm, Dry, Normal Color Course - Vital Signs Last Recorded V/S: Last Vital Signs Temp 98.3 F 11/13/17 18:49 Pulse 94 11/13/17 18:49 Resp 20 11/13/17 18:49 BP 146/66 H 11/13/17 18:49 Pulse Ox 97 11/13/17 18:49 - Orders/Labs/Meds Meds: Medications Discontinued Medications Generic Name Dose Route Start Last Admin Trade Name Guillermo PRN Reason Stop Dose Admin Acetaminophen 975 mg 11/13/17 19:05 11/13/17 19:20 Tylenol PO 11/13/17 19:06 975 mg NOW ONE Administration Amoxicillin 1,000 mg 11/13/17 19:05 11/13/17 19:19 Amoxil PO 11/13/17 19:06 1,000 mg ONETIME ONE Administration Ketorolac Tromethamine 60 mg 11/13/17 19:05 11/13/17 19:21 Toradol IM 11/13/17 19:06 60 mg ONETIME ONE Administration Departure - Departure Time of Disposition: 19:07 Disposition: Home, Self-Care 01 Condition: Fair Clinical Impression: Pain, dental - Discharge Information Prescriptions: Naproxen [Naprosyn] 500 mg PO Q12HR #14 tab Referrals: Kingston Reyna DO [Primary Care Provider] - Forms: ED Department Discharge Additional Instructions: amoxacillin 1000 mg twice daily for 1 week, tylenol 2 to 3 times daily, naprosyn 500 mg twice daily until discomfort resolving, see dentist as soon as possible
== END 2017-11-13 19:30 | disposition home or self-care (01) ==
LOC: SUPCPDRO 18:35 → JD.ED 18:35
DX: K08.89 Other specified disorders of teeth and supporting structures (principal); F17.210 Nicotine dependence, cigarettes, uncomplicated; Z88.5 Allergy status to narcotic agent; Z79.01 Long term (current) use of anticoagulants; Z79.899 Other long term (current) drug therapy
CPT/HCPCS: 96372; 99283; A9270; J1885

== ENCOUNTER 2017-12-01 13:16 | Emergency (ER) | payer BC ==
[2017-12-01 13:26] VITALS: BP 172/97
[2017-12-01] MEDS ORDERED: Ketorolac 60 MG/2 ML SDV IM ONE (13:49)
--- NOTE | 2017-12-01 13:57 | EDM.PDOC ---
ED HPI GENERAL MEDICAL PROBLEM - General Chief Complaint: ENT Problem Stated Complaint: TOOTH PAIN Time Seen by Provider: 12/01/17 13:52 Source of Information: Reports: Patient History Limitations: Reports: No Limitations - History of Present Illness INITIAL COMMENTS - FREE TEXT/NARRATIVE: 32-year-old male presents to the ED with dental pain right lower molar tooth. States is the same tooth that was bothering him over 3 weeks ago when he was here. He was here I believe November [address] Roberts with pain in his right lower molar tooth. The tooth itself on inspection does not look to be in that bad of shape. He must have a root abscess. He states he did get better with antibiotic therapy but within a few days of stopping antibiotics pain is come back. He is a very little limited financial means and cannot afford to see a dentist. Onset: Gradual Onset Date: 11/28/17 Duration: Day(s): Location: Reports: Face (Right lower dental pain) Quality: Reports: Ache, Throbbing Severity: Moderate Improves with: Reports: None Worsens with: Reports: Eating Context: Denies: Activity, Exercise, Lifting, Sick Contact, Trauma, Other Associated Symptoms: Reports: No Other Symptoms Treatments JOB SITE SUPERINTENDENT: Reports: Acetaminophen Right Lower Tooth/Teeth Pain Score (Numeric/FACES): 8 - Related Data Allergies Allergy/AdvReac Type Severity Reaction Status Date / Time morphine Allergy Hives Verified 12/01/17 13:26 Home Meds: Home Meds Warfarin Sodium [Jantoven] 7.5 mg PO WE04/09/17 [History] Buprenorphine HCl/Naloxone HCl [Suboxone 4 mg-1 mg Sl Film] 4 mg SL BEDTIME 01/21 [History] Buprenorphine HCl/Naloxone HCl [Suboxone 4 mg-1 mg Sl Film] 8 mg SL BID [History] Multivitamin [Multivitamins] 1 each PO DAILY 07/14/17 [History] Acetaminophen 975 mg PO QID PRN 07/21/17 [History] Warfarin [Coumadin] 10 mg PO SUMOFRSA 09/17/17 [History] Cephalexin 500 mg PO TID #42 capsule 12/01/17 [Rx] Past Medical History HEENT History: Reports: Impaired Vision Other HEENT History: Wears glasses Cardiovascular History: Reports: Blood Clots/VTE/DVT, Other (See Below) Other Cardiovascular History: factor V, PE Respiratory History: Reports: PE Gastrointestinal History: Reports: PUD Other Gastrointestinal History: bleeding ulcer Musculoskeletal History: Reports: Fracture Other Musculoskeletal History: right elbow fracture, rib fracture, hand fracture Neurological History: Reports: Migraines Psychiatric History: Reports: Addiction Endocrine/Metabolic History: Reports: Obesity/BMI 30+ Hematologic History: Reports: Anticoagulation Therapy Other Hematologic History: Factor V - Infectious Disease History Infectious Disease History: Reports: Hepatitis C - Past Surgical History HEENT Surgical History: Reports: Myringotomy w Tube(s), Tonsillectomy Social & Family History - Family History Cardiac: Reports: [place] - Tobacco Use Smoking Status *Q: Current Every Day Smoker Years of Tobacco use: 15 Packs/Tins Daily: 0.2 - Caffeine Use Caffeine Use: Reports: Energy Drinks, Tea - Recreational Drug Use Recreational Drug Use: Yes Drug Use in Last 12 Months: No Recreational Drug Type: Reports: Methamphetamine - Living Situation & Occupation Living situation: Reports: Single, Other (with a friend) Occupation: Employed ([employer]) ED ROS ENT - Review of Systems Review Of Systems: See Below Constitutional: Denies: Fever, Chills, Malaise, Weakness, Decreased Appetite HEENT: Reports: Dental Pain Respiratory: Reports: No Symptoms (Right lower molar tooth.) Cardiovascular: Reports: No Symptoms Endocrine: Reports: No Symptoms GI/Abdominal: Reports: No Symptoms : Reports: No Symptoms Musculoskeletal: Reports: No Symptoms Skin: Reports: No Symptoms Neurological: Reports: No Symptoms Hematologic/Lymphatic: Reports: Easy Bleeding, Easy Bruising (Due to being on Coumadin.), Other (Patient has a von Leiden factor mutation. 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 He is therefore on Coumadin chronically.) ED EXAM, ENT - Physical Exam Exam: See Below Exam Limited By: No Limitations General Appearance: Alert, WD/WN, No Apparent Distress Eye Exam: Bilateral Eye: Normal Inspection Ears: Normal TMs Mouth/Throat: Dental Tenderness (Patient's pain is localized to his first right lower molar tooth. The tooth itself does not appear to be in bad shape. There is no obvious gingiva swelling or abscess. He did have marked pain on palpation of the tooth however with tongue blade. Suggest a root abscess.) Head: Atraumatic, Normocephalic Neck: Normal Inspection, Supple, Non-Tender, Full Range of Motion. No: Lymphadenopathy (L), Lymphadenopathy (R) Course - Vital Signs Last Recorded V/S: Last Vital Signs Temp 36.7 C 12/01/17 13:23 Pulse 63 12/01/17 13:23 Resp 20 12/01/17 13:23 BP 172/97 H 12/01/17 13:23 Pulse Ox 98 12/01/17 13:23 - Orders/Labs/Meds Meds: Medications Discontinued Medications Generic Name Dose Route Start Last Admin Trade Name Guillermo PRN Reason Stop Dose Admin Ketorolac Tromethamine 60 mg 12/01/17 13:49 12/01/17 14:05 Toradol IM 12/01/17 13:50 60 mg ONETIME ONE Administration - Radiology Interpretation Free Text/Narrative:: 32-year-old male presents the ED with dental pain. He states he cannot afford to see a dentist at this time. He was here similarly 2 weeks ago or 3 weeks ago with a same complaint. He did clear up with antibiotics. He is on Suboxone at this time for chronic pain management. Plan will be placed on Keflex 500 mg three daily for the next 15 days in the hopes of eradicating the infection and providing a little longer relief. When he may be able to get into dental care. Patient requested Toradol 60 mg IM. This was given with some degree of concern as he is anticoagulated chronically with Coumadin. However his weight is close to 500 pounds and I felt that it would likely have very little interaction with his Coumadin one dose. Departure - Departure Time of Disposition: 13:58 Disposition: Home, Self-Care 01 Condition: Fair Clinical Impression: Dental infection - Discharge Information Prescriptions: Cephalexin 500 mg PO TID #42 capsule Instructions: Dental Abscess Referrals: Kingston Reyna DO [Primary Care Provider] - Forms: ED Department Discharge
== END 2017-12-01 14:15 | disposition home or self-care (01) ==
LOC: JD.ED 13:16
DX: K04.7 Periapical abscess without sinus (principal); F17.210 Nicotine dependence, cigarettes, uncomplicated; Z79.01 Long term (current) use of anticoagulants; Z79.899 Other long term (current) drug therapy; Z88.5 Allergy status to narcotic agent
CPT/HCPCS: 96372; 99283; J1885

== ENCOUNTER 2017-12-14 04:33 | Emergency (ER) | payer BC ==
[2017-12-14 04:44] VITALS: BP 190/103
--- NOTE | 2017-12-14 04:51 | EDM.PDOC ---
ED HPI GENERAL MEDICAL PROBLEM - General Chief Complaint: ENT Problem Stated Complaint: TOOTH INFECTION Time Seen by Provider: 12/14/17 04:41 - History of Present Illness INITIAL COMMENTS - FREE TEXT/NARRATIVE: 32-year-old male returns emergency room with some facial swelling and a continued toothache. This patient has been in twice before this for infection of the same tooth. He is completing a 15 day course of cephalexin and is not getting better. He has developed a little bit of right facial swelling. He cannot afford to get in to see the dentist. Right Lower Tooth/Teeth Pain Score (Numeric/FACES): 7 - Related Data Allergies Allergy/AdvReac Type Severity Reaction Status Date / Time morphine Allergy Hives Verified 12/14/17 04:41 Home Meds: Home Meds Warfarin Sodium [Jantoven] 7.5 mg PO WETH 04/09/17 [History] Buprenorphine HCl/Naloxone HCl [Suboxone 4 mg-1 mg Sl Film] 4 mg SL BEDTIME 01/21 [History] Buprenorphine HCl/Naloxone HCl [Suboxone 4 mg-1 mg Sl Film] 8 mg SL BID [History] Multivitamin [Multivitamins] 1 each PO DAILY 07/14/17 [History] Acetaminophen 975 mg PO QID PRN 07/21/17 [History] Warfarin [Coumadin] 10 mg PO SUMOFRSA 09/17/17 [History] Cephalexin 500 mg PO TID #42 capsule 12/01/17 [Rx] Clindamycin HCl [Cleocin] 150 mg PO Q6H #40 cap 12/14/17 [Rx] Past Medical History HEENT History: Reports: Impaired Vision Other HEENT History: Wears glasses Cardiovascular History: Reports: Blood Clots/VTE/DVT, Other (See Below) Other Cardiovascular History: factor V, PE Respiratory History: Reports: PE Gastrointestinal History: Reports: PUD Other Gastrointestinal History: bleeding ulcer Musculoskeletal History: Reports: Fracture Other Musculoskeletal History: right elbow fracture, rib fracture, hand fracture Neurological History: Reports: Migraines Psychiatric History: Reports: Addiction Endocrine/Metabolic History: Reports: Obesity/BMI 30+ Hematologic History: Reports: Anticoagulation Therapy Other Hematologic History: Factor V - Infectious Disease History Infectious Disease History: Reports: Hepatitis C - Past Surgical History HEENT Surgical History: Reports: Myringotomy w Tube(s), Tonsillectomy Social & Family History - Family History Cardiac: Reports: [place] - Caffeine Use Caffeine Use: Reports: Energy Drinks, Tea - Living Situation & Occupation Living situation: Reports: Single, Other (with a friend) Occupation: Employed ([employer]) ED ROS ENT - Review of Systems Review Of Systems: See Below Constitutional: Reports: No Symptoms. Denies: Fever, Chills HEENT: Reports: Dental Pain Respiratory: Reports: No Symptoms Cardiovascular: Reports: No Symptoms GI/Abdominal: Reports: No Symptoms ED EXAM, ENT - Physical Exam Exam: See Below Exam Limited By: No Limitations General Appearance: Alert, No Apparent Distress Nose: Other Mouth/Throat: Dental Tenderness (Right forward molar lower minimal gum changes minimal erythema no drainage) Head: Atraumatic, Normocephalic, Other (Minimal swelling along the right jaw) Neck: Normal Inspection. No: Lymphadenopathy (L), Lymphadenopathy (R) Respiratory/Chest: No Respiratory Distress, Lungs Clear, Normal Breath Sounds Cardiovascular: Regular Rate, Rhythm, No Murmur Course - Vital Signs Last Recorded V/S: Last Vital Signs Temp 36.6 C 12/14/17 04:42 Pulse 93 12/14/17 04:42 Resp 16 12/14/17 04:42 BP 190/103 H 12/14/17 04:42 Pulse Ox 97 12/14/17 04:42 - Re-Assessments/Exams Free Text/Narrative Re-Assessment/Exam: 12/14/17 04:57 I am concerned that he is not getting benefit from more antibiotics at this point however we'll change him over to course of clindamycin he needs to get in to see a dentist he very well could have a structural tooth problem that is causing the discomfort and antibiotics may just not help with this. Attempted to explain this to the patient 12/14/17 05:12 His blood pressure was very elevated when he got here it came down some but not really acceptable range he is advised to follow-up with his regular doctor early next week for recheck of his blood pressure. Departure - Departure Time of Disposition: 04:58 Disposition: Home, Self-Care 01 Clinical Impression: Pain, dental - Discharge Information Prescriptions: Clindamycin HCl [Cleocin] 150 mg PO Q6H #40 cap Instructions: Dental Abscess Referrals: Kingston Reyna DO [Primary Care Provider] - Forms: ED Department Discharge Additional Instructions: Return to the emergency room with any questions problems Find a way to see the dentist ultimately that's the only way this will get fixed. Take the antibiotics as directed
== END 2017-12-14 05:14 | disposition home or self-care (01) ==
LOC: JD.ED 04:33
DX: K08.89 Other specified disorders of teeth and supporting structures (principal); Z88.5 Allergy status to narcotic agent; Z79.899 Other long term (current) drug therapy
CPT/HCPCS: 99283

== ENCOUNTER 2018-02-06 00:24 | Emergency (ER) | payer BC ==
[2018-02-06 00:44] VITALS: BP 176/128
[2018-02-06] MEDS ORDERED: Amoxicillin/Clavulanate K 875-125 MG Tab PO ONE (01:03)
--- NOTE | 2018-02-06 01:05 | EDM.PDOC ---
ED HPI GENERAL MEDICAL PROBLEM - General Chief Complaint: Respiratory Problem Stated Complaint: CONGESTION Time Seen by Provider: 02/06/18 00:58 Source of Information: Reports: Patient History Limitations: Reports: No Limitations - History of Present Illness INITIAL COMMENTS - FREE TEXT/NARRATIVE: Patient presents with left frontal sinus pain. He had had a tooth extracted over a week ago and had been on penicillin. He since the end of our x-ray and out about 4 days ago he said increasing pain now and congestion to the left nose and sinus area. He has had occasional nosebleeds on Coumadin for history of factor V Leiden and pulmonary embolism and deep vein thrombosis problems in the past. He quit smoking about a month ago but is using vapor. Mild left-sided headache. No vision changes no skin changes no trismus, no swallowing difficulty. He has had some mild increased shortness of breath and occasional coughing. No lightheadedness or dizziness. No nausea vomiting or diarrhea. He is on Suboxone and again on Coumadin Left Face Pain Score (Numeric/FACES): 6 - Related Data Allergies Allergy/AdvReac Type Severity Reaction Status Date / Time morphine Allergy Hives Verified 02/06/18 00:44 Home Meds: Home Meds Warfarin Sodium [Jantoven] 7.5 mg PO 04/09/17 [History] Buprenorphine HCl/Naloxone HCl [Suboxone 4 mg-1 mg Sl Film] 4 mg SL BEDTIME 01/21 [History] Buprenorphine HCl/Naloxone HCl [Suboxone 4 mg-1 mg Sl Film] 8 mg SL BID [History] Multivitamin [Multivitamins] 1 each PO DAILY 07/14/17 [History] Acetaminophen 975 mg PO QID PRN 07/21/17 [History] Warfarin [Coumadin] 10 mg PO SUMOFRSA 09/17/17 [History] Amoxicillin/Clavulanate K [Augmentin 875-125 MG] 1 tab PO BID #20 tablet [Rx] guaiFENesin [Mucinex] 600 mg PO BID #20 tab.er 02/06/18 [Rx] Past Medical History HEENT History: Reports: Impaired Vision Other HEENT History: Wears glasses Cardiovascular History: Reports: Blood Clots/VTE/DVT, Other (See Below) Other Cardiovascular History: factor V, PE Respiratory History: Reports: PE Gastrointestinal History: Reports: PUD Other Gastrointestinal History: bleeding ulcer Musculoskeletal History: Reports: Fracture Other Musculoskeletal History: right elbow fracture, rib fracture, hand fracture Neurological History: Reports: Migraines Psychiatric History: Reports: Addiction Endocrine/Metabolic History: Reports: Obesity/BMI 30+ Hematologic History: Reports: Anticoagulation Therapy Other Hematologic History: Factor V - Infectious Disease History Infectious Disease History: Reports: Hepatitis C - Past Surgical History HEENT Surgical History: Reports: Myringotomy w Tube(s), Tonsillectomy Social & Family History - Family History Cardiac: Reports: [place] - Caffeine Use Caffeine Use: Reports: Energy Drinks, Tea - Living Situation & Occupation Living situation: Reports: Other, Single Occupation: Employed ([employer]) ED ROS GENERAL - Review of Systems Review Of Systems: See Below Constitutional: Denies: Fever, Chills HEENT: Reports: Rhinitis. Denies: Eye Discharge, Eye Pain, Throat Swelling Respiratory: Reports: Cough. Denies: Shortness of Breath Cardiovascular: Denies: Chest Pain, Orthopnea, PND GI/Abdominal: Denies: Abdominal Pain, Nausea, Vomiting : Denies: Dysuria Musculoskeletal: Denies: Neck Pain Neurological: Reports: Headache. Denies: Dizziness ED EXAM, GENERAL - Physical Exam Exam: See Below Exam Limited By: No Limitations General Appearance: Alert, WD/WN, No Apparent Distress Ears: Normal External Exam, Normal Canal, Hearing Grossly Normal, Normal TMs Nose: Normal Inspection, Normal Mucosa, No Blood, Other (He does have left maxillary and frontal sinus tenderness) Throat/Mouth: Normal Inspection, Normal Lips, Normal Teeth, Normal Oropharynx Neck: Supple, Non-Tender, Lymphadenopathy (R). No: Lymphadenopathy (L) Respiratory/Chest: No Respiratory Distress, Lungs Clear, Normal Breath Sounds Cardiovascular: Regular Rate, Rhythm Neurological: Alert, Oriented Psychiatric: Normal Affect, Normal Mood Skin Exam: Warm, Dry Course - Vital Signs Text/Narrative:: Seems to be directly related to maybe this tooth extraction. The oral exam shows the area from the tooth extraction site to be healing nicely. There is no signs of any obvious infection. Gumline is normal. We'll treat him for possible sinus infection and early bronchitis and will treat him with Augmentin 875 twice a day, Mucinex fluids rest follow-up and return precautions given. Last Recorded V/S: Last Vital Signs Temp 98.1 F 02/06/18 00:40 Pulse 72 02/06/18 00:40 Resp 14 02/06/18 00:40 BP 176/128 H 02/06/18 00:40 Pulse Ox 93 L 02/06/18 00:40 - Orders/Labs/Meds Meds: Medications Discontinued Medications Generic Name Dose Route Start Last Admin Trade Name Guillermo PRN Reason Stop Dose Admin Amoxicillin/Clavulanate Potassium 1 tab 02/06/18 01:03 Augmentin 875 Mg/125 Mg PO 02/06/18 01:04 ONETIME ONE Departure - Departure Time of Disposition: 01:02 Disposition: Home, Self-Care 01 Condition: Fair Clinical Impression: Bronchitis, Anticoagulated on warfarin Sinusitis Qualifiers: Sinusitis location: maxillary Chronicity: acute Recurrence: non-recurrent Qualified Code(s): J01.00 - Acute maxillary sinusitis, unspecified - Discharge Information *PRESCRIPTION DRUG MONITORING PROGRAM REVIEWED*: Not Applicable *COPY OF PRESCRIPTION DRUG MONITORING REPORT IN PATIENT JOSE ELIAS: Not Applicable Prescriptions: Amoxicillin/Clavulanate K [Augmentin 875-125 MG] 1 tab PO BID #20 tablet guaiFENesin [Mucinex] 600 mg PO BID #20 tab.er Instructions: Sinusitis, Adult, [id number] Referrals: Kingston Reyna DO [Primary Care Provider] - Forms: ED Department Discharge
== END 2018-02-06 01:22 | disposition home or self-care (01) ==
LOC: JD.ED 00:24
DX: J01.00 Acute maxillary sinusitis, unspecified (principal); J40 Bronchitis, not specified as acute or chronic; Z79.01 Long term (current) use of anticoagulants; Z79.899 Other long term (current) drug therapy; Z88.5 Allergy status to narcotic agent
CPT/HCPCS: 99283; A9270

== ENCOUNTER 2019-02-06 06:37 | Emergency (ER) | payer BC ==
[2019-02-06 06:45] VITALS: BP 169/95
[2019-02-06] MEDS ORDERED: Ketorolac 60 MG/2 ML SDV IM ONE (06:56)
--- NOTE | 2019-02-06 07:03 | EDM.PDOC ---
ED HPI GENERAL MEDICAL PROBLEM - General Chief Complaint: ENT Problem Stated Complaint: MOUTH INFECTION, SHORTNESS OF BREATH Time Seen by Provider: 02/06/19 06:53 Source of Information: Reports: Patient History Limitations: Reports: No Limitations - History of Present Illness INITIAL COMMENTS - FREE TEXT/NARRATIVE: The patient presents with dental pain, headache and shortness of breath. This all started Tuesday with dental pain and today he has a headache and shortness of breath. He does have a slight cough. He has no chest pain. He was going to go to his dentist in Tuesday but it was labor day. He has no fever or chills. Onset: Gradual Duration: Day(s): (3) Location: Reports: Face Quality: Reports: Sharp Severity: Severe Improves with: Reports: None Worsens with: Reports: None Associated Symptoms: Reports: Cough, Headaches, Shortness of Breath. Denies: Chest Pain, Fever/Chills, Nausea/Vomiting Left Lower Tooth/Teeth Pain Score (Numeric/FACES): 8 - Related Data Allergies Allergy/AdvReac Type Severity Reaction Status Date / Time morphine Allergy Hives Verified 02/06/19 06:42 Home Meds: Home Meds Warfarin Sodium [Jantoven] 7.5 mg PO WETH 04/09/17 [History] Multivitamin [Multivitamins] 1 each PO DAILY 07/14/17 [History] Acetaminophen 975 mg PO QID PRN 07/21/17 [History] Warfarin [Coumadin] 10 mg PO SUMOFRSA 09/17/17 [History] Hydrocodone/Acetaminophen [Hydrocodon-Acetaminophen 5-325] 1 - 2 each PO Q6HR PRN #20 tablet 02/06/19 [Rx] Penicillin V Potassium 500 mg PO Q6HR #40 tab 02/06/19 [Rx] Past Medical History HEENT History: Reports: Impaired Vision Other HEENT History: Wears glasses Cardiovascular History: Reports: Blood Clots/VTE/DVT, Other (See Below) Other Cardiovascular History: factor V, PE Respiratory History: Reports: PE Gastrointestinal History: Reports: PUD Other Gastrointestinal History: bleeding ulcer Musculoskeletal History: Reports: Fracture Other Musculoskeletal History: right elbow fracture, rib fracture, hand fracture Neurological History: Reports: Migraines Psychiatric History: Reports: Addiction Endocrine/Metabolic History: Reports: Obesity/BMI 30+ Hematologic History: Reports: Anticoagulation Therapy Other Hematologic History: Factor V - Infectious Disease History Infectious Disease History: Reports: Hepatitis C - Past Surgical History HEENT Surgical History: Reports: Myringotomy w Tube(s), Tonsillectomy Social & Family History - Family History Cardiac: Reports: OR - Tobacco Use Smoking Status *Q: Current Every Day Smoker Years of Tobacco use: 15 Packs/Tins Daily: 0.1 - Caffeine Use Caffeine Use: Reports: Energy Drinks, Tea - Recreational Drug Use Recreational Drug Use: Yes Drug Use in Last 12 Months: No Recreational Drug Use Frequency: Not Used In Over 6 Months - Living Situation & Occupation Living situation: Reports: Other, Single Occupation: Employed ([employer]) ED ROS ENT - Review of Systems Review Of Systems: See Below Constitutional: Reports: No Symptoms HEENT: Reports: Dental Pain Respiratory: Reports: Shortness of Breath, Cough Cardiovascular: Reports: No Symptoms Endocrine: Reports: No Symptoms GI/Abdominal: Reports: No Symptoms : Reports: No Symptoms Musculoskeletal: Reports: No Symptoms Skin: Reports: No Symptoms ED EXAM, ENT - Physical Exam Exam: See Below Exam Limited By: No Limitations General Appearance: Alert, No Apparent Distress Ears: Normal External Exam Nose: Normal Inspection Mouth/Throat: Other (Pain upon palpation to the left lower jaw with erythema and edema to the 1st molar region.) Course - Vital Signs Last Recorded V/S: Last Vital Signs Temp 97.1 F 02/06/19 06:44 Pulse 59 L 02/06/19 06:44 Resp 20 02/06/19 06:44 BP 169/95 H 02/06/19 06:44 Pulse Ox 95 02/06/19 06:44 - Re-Assessments/Exams Free Text/Narrative Re-Assessment/Exam: 02/06/19 06:59 I ordered a shot of toradol and I will get him on some pen VK and hydrocodone for pain. Departure - Departure Time of Disposition: 07:00 Disposition: Home, Self-Care 01 Condition: Good Clinical Impression: Pain, dental, Dental abscess - Discharge Information *PRESCRIPTION DRUG MONITORING PROGRAM REVIEWED*: No *COPY OF PRESCRIPTION DRUG MONITORING REPORT IN PATIENT JOSE ELIAS: No Prescriptions: Hydrocodone/Acetaminophen [Hydrocodon-Acetaminophen 5-325] 1 - 2 each PO Q6HR PRN #20 tablet PRN Reason: Pain Penicillin V Potassium 500 mg PO Q6HR #40 tab Referrals: PCP,None [Primary Care Provider] - Additional Instructions: Take the penicillin VK 4 times per day for 10 days. Take tylenol as needed for pain. If that does not help try the hydrocodone. Please return if you are worse.
== END 2019-02-06 07:25 | disposition home or self-care (01) ==
LOC: JD.ED 06:37
DX: K04.7 Periapical abscess without sinus (principal); E66.9 Obesity, unspecified; F17.210 Nicotine dependence, cigarettes, uncomplicated; Z88.5 Allergy status to narcotic agent; Z79.01 Long term (current) use of anticoagulants; Z79.899 Other long term (current) drug therapy; Z98.890 Other specified postprocedural states; Z68.45 Body mass index [BMI] 70 or greater, adult
CPT/HCPCS: 96372; 99282; J1885